=== PATIENT | female | born 1995 | race Two or more races ===

== ENCOUNTER 2024-04-20 11:15 | Outpatient (CLI) | payer OTHER | END 2024-04-20 11:16 | disposition home or self-care (01) | LOC: PRENATAL 11:15 | PROVIDERS: ATTEND Obstetrics & Gynecology Maternal & Fetal Medicine | DX: O36.80X0 Pregnancy with inconclusive fetal viability, not applicable or unspecified (principal); Z36.82 Encounter for antenatal screening for nuchal translucency; O35 Maternal care for known or suspected fetal abnormality and damage; Z3A.13 13 weeks gestation of pregnancy ==

== ENCOUNTER 2024-06-09 08:03 | Outpatient (CLI) | payer OTHER | END 2024-06-09 08:05 | disposition home or self-care (01) | LOC: PRENATAL 08:03 | PROVIDERS: ATTEND Obstetrics & Gynecology Maternal & Fetal Medicine | DX: O44.00 Complete placenta previa NOS or without hemorrhage, unspecified trimester (principal); Z3A.19 19 weeks gestation of pregnancy ==

== ENCOUNTER 2024-08-04 13:46 | Outpatient (CLI) | payer OTHER | END 2024-08-04 13:47 | disposition home or self-care (01) | LOC: PRENATAL 13:46 | PROVIDERS: ATTEND Obstetrics & Gynecology Maternal & Fetal Medicine | DX: O26.849 Uterine size-date discrepancy, unspecified trimester (principal); O43.90 Unspecified placental disorder, unspecified trimester; Z3A.27 27 weeks gestation of pregnancy ==

== ENCOUNTER 2024-08-30 09:31 | Outpatient (CLI) | payer OTHER | END 2024-08-30 09:32 | disposition home or self-care (01) | LOC: PRENATAL 09:31 | PROVIDERS: ATTEND Obstetrics & Gynecology Maternal & Fetal Medicine | DX: O26.849 Uterine size-date discrepancy, unspecified trimester (principal); O36.8199 Decreased fetal movements, unspecified trimester, other fetus; O99.891 Other specified diseases and conditions complicating pregnancy; O43.90 Unspecified placental disorder, unspecified trimester; O36.5990 Maternal care for other known or suspected poor fetal growth, unspecified trimester, not applicable or unspecified; Z3A.32 32 weeks gestation of pregnancy ==

== ENCOUNTER 2024-09-07 09:25 | Outpatient (CLI) | payer OTHER | END 2024-09-07 09:26 | disposition home or self-care (01) | LOC: PRENATAL 09:25 | PROVIDERS: ATTEND Obstetrics & Gynecology Maternal & Fetal Medicine | DX: O36.8199 Decreased fetal movements, unspecified trimester, other fetus (principal); Z3A.33 33 weeks gestation of pregnancy ==

== ENCOUNTER → 2024-09-14 12:11 | Outpatient (CLI) | payer OTHER | END | disposition home or self-care (01) | LOC: PRENATAL 12:11 | PROVIDERS: ATTEND Obstetrics & Gynecology Maternal & Fetal Medicine | DX: O36.8199 Decreased fetal movements, unspecified trimester, other fetus (principal); Z3A.34 34 weeks gestation of pregnancy ==

== ENCOUNTER → 2024-09-21 10:33 | Outpatient (CLI) | payer OTHER | END | disposition home or self-care (01) | LOC: PRENATAL 10:33 | PROVIDERS: ATTEND Obstetrics & Gynecology Maternal & Fetal Medicine | DX: O26.849 Uterine size-date discrepancy, unspecified trimester (principal); O36.8199 Decreased fetal movements, unspecified trimester, other fetus; O43.90 Unspecified placental disorder, unspecified trimester; O36.5990 Maternal care for other known or suspected poor fetal growth, unspecified trimester, not applicable or unspecified; Z3A.33 33 weeks gestation of pregnancy ==

== ENCOUNTER 2024-09-30 09:52 | Outpatient (CLI) | payer OTHER | END 2024-09-30 09:53 | disposition home or self-care (01) | LOC: NST 09:52 | PROVIDERS: ATTEND Obstetrics & Gynecology Maternal & Fetal Medicine | DX: Z34.83 Encounter for supervision of other normal pregnancy, third trimester (principal) ==

== ENCOUNTER 2024-10-10 11:04 | Outpatient (CLI) | payer OTHER | END 2024-10-10 11:05 | disposition home or self-care (01) | LOC: PRENATAL 11:04 | PROVIDERS: ATTEND Obstetrics & Gynecology Maternal & Fetal Medicine | DX: O36.8199 Decreased fetal movements, unspecified trimester, other fetus (principal); Z3A.38 38 weeks gestation of pregnancy ==